=== PATIENT | male | born 1945 | race Caucasian/White ===

== ENCOUNTER 2018-05-17 20:01 | Emergency (ER) | payer MEDICARE, OTHER ==
[2018-05-17 20:18] VITALS: BP 139/72
[2018-05-17] MEDS ORDERED: OXYMETAZOLINE NASAL SPRAY NAS STA (20:36)
--- NOTE | 2018-05-17 21:25 | ED Physician Documentation ---
PD HPI HEENT - Stated complaint Stated Complaint: NOSE BLEED - Chief complaint Chief Complaint: Heent - History obtained from History obtained from: Patient - History of Present Illness Timing - onset: How many hours ago (2), Today Timing - duration: Hours (2) Timing - details: Abrupt onset, Still present Location: Nose (right nosebleed with just gentle nose blowing. Has had some allergy congestion.) Associated symptoms: No: Fever, Congestion Similar symptoms before: Has not had sx before Recently seen: Not recently seen Review of Systems Constitutional: denies: Fever, Chills Nose: denies: Rhinorrhea / runny nose, Congestion Throat: denies: Sore throat Respiratory: denies: Cough GI: denies: Nausea, Vomiting, Diarrhea Neurologic: denies: Generalized weakness, Focal weakness, Numbness, Near syncope PD PAST MEDICAL HISTORY - Past Medical History Cardiovascular: Hypertension, High cholesterol, Coronary artery disease, [place] Respiratory: Asthma, Emphysema - Past Surgical History Past Surgical History: Yes Cardiovascular: Coronary stent, Angioplasty, AAA - Present Medications Home Medications: Ambulatory Orders Medication Instructions Recorded Confirmed Albuterol [Ventolin Hfa] 2 puffs INH DAILY 10/29/15 08/03/16 Aspirin [Low Dose Aspirin EC] 81 mg PO DAILY 10/29/15 08/03/16 Atorvastatin [Lipitor] 40 mg PO DAILY 10/29/15 08/03/16 Clopidogrel Bisulfate [Plavix] 75 mg PO DAILY 10/29/15 08/03/16 Losartan/Hydrochlorothiazide 1 tab PO DAILY 10/29/15 08/03/16 [Losartan-Hctz 50-12.5 mg Tab] Metoprolol Tartrate 25 mg PO BID 10/29/15 08/03/16 [place]-3 Fatty Acids/Fish Oil [Fish 1,000 mg PO DAILY 10/29/15 08/03/16 Oil 1,000 mg Capsule] cephALEXin [Cephalexin] 500 mg PO TID #10 tablet 08/03/16 - Allergies Allergies/Adverse Reactions: Allergies Allergy/AdvReac Type Severity Reaction Status Date / Time Influenza Virus Vaccines AdvReac Unknown Verified 08/03/16 09:24 typhus vaccine AdvReac Unknown Verified 08/03/16 09:24 yellow fever vaccine live AdvReac Unknown Verified 08/03/16 09:24 egg white AdvReac Unknown Uncoded 08/03/16 09:24 - Social History Does the pt smoke?: No Smoking Status: Never smoker Does the pt drink ETOH?: Yes Does the pt have substance abuse?: No - Immunizations Immunizations are current?: Yes PD ED PE NORMAL - Vitals Vital signs reviewed: Yes - General General: Alert and oriented X 3, No acute distress, Well developed/nourished - HEENT HEENT: Ears normal, Pharynx benign, Other (right anterior nare with some bleeding even after pinched here awhile. ) - Neck Neck: Supple, no meningeal sign, No adenopathy - Cardiac Cardiac: RRR, No murmur - Respiratory Respiratory: Clear bilaterally Results - Vitals Vitals: Vital Signs - 24 hr 05/17/18 20:10 Temperature 36.1 C L Heart Rate 56 L Respiratory 18 Rate Blood Pressure 139/72 H O2 Saturation 99 Oxygen O2 Source Room air Procedures - Epistaxis Site: Right, Anterior Preparation: Clots removed, Afrin, Clamp / pressure applied, Other (TXA onto merocel when inserted) Treatment: Silver Nitrate, Packing inserted Other: Observed - no bleeding, Pt tolerated well, O2 sat WNL. No: Antibiotics prescribed PD MEDICAL DECISION MAKING - ED course Complexity details: re-evaluated patient, considered differential, d/w patient - Sepsis Event Vital Signs: Vital Signs - 24 hr 05/17/18 20:10 Temperature 36.1 C L Heart Rate 56 L Respiratory 18 Rate Blood Pressure 139/72 H O2 Saturation 99 Oxygen O2 Source Room air Departure - Departure Disposition: 01 Home, Self Care Clinical Impression: Anterior epistaxis Condition: Stable Record reviewed to determine appropriate education?: Yes Instructions: Nosebleed Follow-Up: Tyrell Gregorio MD [Primary Care Provider] - Comments: Leave the packing in for a day 1-1/2 days. Then moistened and gently pull out. He can follow-up here your primary care if you prefer. If you have recurrent bleeding, sprays some of the Afrin medicine to saturate the gauze and apply the nose pressure. Recheck if bleeding persists despite that. Discharge Date/Time: 05/17/18 21:34
== END 2018-05-17 21:34 | disposition home or self-care (01) ==
LOC: ED 20:01
DX: R04.0 Epistaxis (principal); I10 Essential (primary) hypertension; Z79.02 Long term (current) use of antithrombotics/antiplatelets; Z79.82 Long term (current) use of aspirin
CPT/HCPCS: 30901; 99283; A9270

== ENCOUNTER 2018-07-08 09:03 | Outpatient (CLI) | payer MEDICARE, OTHER ==
--- NOTE | 2018-07-08 22:06 | Ultrasound Report ---
Reason: ABDOMINAL AORTIC ANEURYSM Procedure Date: 07/08/2018 Accession Number: [id number] / [id number] Procedure: US - Retroperitoneal Limited CPT Code: FULL RESULT: EXAM: AORTIC DOPPLER ULTRASOUND EXAM DATE: 07/08/2018 10:30 AM. CLINICAL HISTORY: Abdominal aortic aneurysm. COMPARISON: 07/02/2014 8:26 AM. TECHNIQUE: Real-time sonographic imaging of retroperitoneal vascular structures, including color-flow, Doppler flow and spectral analysis was performed by the middle school assistant principal. Multiple airline security representative static images were saved for review. FINDINGS: Aorta: Normal mid and proximal abdominal aortic caliber. Fusiform aneurysmal dilation of the distal abdominal aorta. Patient is status post endovascular stent repair of the abdominal aorta. No color flow is noted outside of the stent and within the lumen of the aneurysm. Aorta: Proximal: 2.7 cm sagittal. PSV 30.3 cm/sec. Mid: 2.4 x 2.5 cm sagittal.PSV 45.6cm/sec. Distal: 3.7 x 4.3 cm sagittal. PSV 63.8 cm/sec. Proximal RCIA PSV: 57.0 cm/sec. Prox LCIA PSV: 48.5 cm/sec. Iliacs: Right Iliac: 1.4 x 1.5 mm. Left Iliac: 1.3 x 1.5 mm. Iliac Vessels: The visualized proximal common iliac arteries are normal in caliber. Other: None. IMPRESSION: Endovascular stent repair of a fusiform distal abdominal aortic aneurysm measuring 4.3 x 3.7 cm. No flow is noted in the excluded aneurysmal sac. Previously, aneurysm measured 5.1 x 4.7 cm. No retroperitoneal hematoma. RADIA
== END 2018-07-08 09:04 | disposition home or self-care (01) ==
LOC: DI 09:03
PROVIDERS: ATTEND Internal Medicine
DX: I71.4 Abdominal aortic aneurysm, without rupture (principal)
CPT/HCPCS: 76775

== ENCOUNTER 2019-02-07 13:49 | Outpatient (CLI) | payer MEDICARE, OTHER ==
[2019-02-07] MEDS ORDERED: REGADENOSON 0.4 MG/5 ML SYRINGE IVP ONE ×2 (15:06→16:18)
--- NOTE | 2019-02-07 18:38 | CARDIAC PROCEDURE NOTE ---
DATE OF SERVICE: 02/07/2019 Physician: Samra Paredes MD, [facility] INDICATIONS: Coronary artery disease and stent greater than 2 years ago, followup, and has shortness of breath with exertion. CARDIAC RISK FACTORS: Male gender, known CAD, history of PVD, hypertension, hyperlipidemia, family history of early heart disease, remote ex-smoker (quit 15 years ago). PROCEDURE: After signing consent, the patient underwent Lexiscan pharmaceutical stress testing with nuclear myocardial perfusion imaging. RESTING HEART RATE: 49. Peak heart rate: 63. RESTING BLOOD PRESSURE: 145/74. Peak blood pressure: 132/62. Lexiscan was infused per protocol. The patient developed marked flushing and marked shortness of breath. Oxygen saturation was 98% on room air at this time. The patient had no chest pain or other side effects. His flushing and shortness of breath resolved after 2-3 minutes spontaneously. RESTING EKG: Sinus bradycardia, right IVCD, early R/S transition, inverted T wave in lead III, 0.[address] depression in leads II, III, aVF, and V4- V6. EKG AT [facility]: No new ST or T-wave changes. SUMMARY 1. Abnormal resting electrocardiogram. 2. Shortness of breath during pharmaceutical stress test. 3. No new ischemic ST-T changes by EKG criteria. 4. Nuclear images reported separately. TD: 02/07/2019 16:35 MTDD
--- NOTE | 2019-02-08 08:12 | Nuclear Medicine Report ---
Reason: CAD Procedure Date: 02/07/2019 Accession Number: [id number] / [id number] Procedure: NM - Myocardial Perfusion STR/RST CPT Code: FULL RESULT: EXAM: SINGLE-ISOTOPE PHARMACOLOGICAL STRESS TEST WITH REGADENOSON. SINGLE-ISOTOPE AND ONE-DAY REST/STRESS MYOCARDIAL PERFUSION SCANS WITH TOMOGRAPHIC IMAGING, QUANTITATIVE ANALYSIS, WALL MOTION ANALYSIS AND CALCULATION OF EJECTION FRACTION. EXAM DATE: 02/07/2019 05:15 PM. CLINICAL HISTORY: Coronary artery disease. COMPARISON: None available. TECHNIQUE: After the intravenous administration of 10.9 mCi of Tc-99m sestamibi, a rest myocardial perfusion scan was done with tomography. Motion correction was applied when appropriate. After an appropriate delay, pharmacological stress was performed with the infusion of 0.4 mg regadenoson per protocol. According to protocol, 43.6 mCi of Tc-99m sestamibi was injected for stress myocardial perfusion scan. Motion correction was applied when appropriate. Gated tomographic images were obtained for wall motion analysis and computation of left ventricular ejection fraction. FINDINGS: On visual analysis, there is mild inferior wall attenuation artifact. No convincing significant fixed or reversible perfusion defects are evident. Computer analysis Summed stress score 1 Summed rest score 0 Summed difference score 1 Wall motion analysis demonstrates no focal wall motion abnormality. The left ventricular end-diastolic volume is 61 cc. The left ventricular end-systolic volume is 9 cc. The left ventricular ejection fraction is calculated to be 86%. IMPRESSION: 1. No scintigraphic findings to indicate myocardial ischemia. Negative for infarct. 2. Left ventricular ejection fraction of 86%. 3. Normal segmental and global wall motion. 4. Normal left ventricular cavity size, no change with stress. 5. Based on computer analysis normal study with no ischemia. Please correlate findings with stress ECG tracings and procedure notes. RADIA
== END 2019-02-07 13:50 | disposition home or self-care (01) ==
LOC: DI 13:49
PROVIDERS: ATTEND Internal Medicine Cardiovascular Disease
DX: I25.119 Atherosclerotic heart disease of native coronary artery with unspecified angina pectoris (principal); I10 Essential (primary) hypertension; E78.5 Hyperlipidemia, unspecified; Z82.49 Family history of ischemic heart disease and other diseases of the circulatory system; R94.31 Abnormal electrocardiogram [ECG] [EKG]; R06.02 Shortness of breath; I73.9 Peripheral vascular disease, unspecified
CPT/HCPCS: 78452; 93017; A9500; J2785

== ENCOUNTER 2021-10-27 08:00 | Outpatient (CLI) | payer MEDICARE, OTHER | END 2021-10-27 23:59 | LOC: LAB.N 08:00 | PROVIDERS: ATTEND Family Medicine | DX: R05.9 Cough, unspecified (principal); Z20.822 Contact with and (suspected) exposure to COVID-19 ==

== ENCOUNTER 2021-12-02 08:06 | Outpatient (CLI) | payer MEDICARE, OTHER ==
--- NOTE | 2021-12-02 10:34 | Ultrasound Report ---
PROCEDURE: Retroperitoneal Limited INDICATIONS: AAA TECHNIQUE: Real-time scanning was performed of the retroperitoneal organs, with image documentation. COMPARISON: 12/30/2017 FINDINGS: Aorta: Proximal aorta measures 2.4 x 2.4 cm, mid aorta measures 2.2 x 2.3 cm, distal aorta measures 3.7 x 4. 3 cm. An endovascular stent graft is present. There is no flow outside the stent graft material. Right common iliac artery measures 1.7 x 1.5 cm. Left common iliac artery measures 1.6 x 1.5 cm. IMPRESSION: 1. Stable size and appearance of mid to distal abdominal aortic aneurysm post endograft placement. Reviewed by: Vani Alvarado MD on 12/02/2021 10:33 AM PST Approved by: Vani Alvarado MD on 12/02/2021 10:33 AM PST Station ID: [id number]
== END 2021-12-02 08:07 | disposition home or self-care (01) ==
LOC: DI 08:06
PROVIDERS: ATTEND Internal Medicine
DX: I71.4 Abdominal aortic aneurysm, without rupture (principal); Z95.828 Presence of other vascular implants and grafts

== ENCOUNTER 2022-11-04 08:12 | Day surgery (SDC) | payer MEDICARE, OTHER ==
[~2022-11-04 08:12] MED LIST: CYCLOPENTOLATE 1% OPHTH DROPS 2 ML ONE; KETOROLAC 0.45% OPHTH DROPS ONE; PHENYLEPHRINE 2.5% OPHTH 2 ML DROPS ONE; PROPARACAINE 0.5% OPHTH DROPS 15 ML ONE
--- NOTE | 2022-11-04 08:12 | ANESTHESIA ---
Pre-Anesthesia VS, & Labs - Diagnosis R senile combined cataract - Procedure extraction cataract w IOL Height: 5 ft 10 in - NPO >8 hours Home Medications and Allergies Home Medications: Ambulatory Orders Tiotropium [place] [Spiriva Handihaler] 1 puffs IH DAILY 11/04/22 Albuterol [Ventolin Hfa] 2 puffs INH DAILY 10/29/15 Aspirin [Low Dose Aspirin EC] 81 mg PO DAILY 10/29/15 Atorvastatin [Lipitor] 40 mg PO DAILY 10/29/15 Clopidogrel Bisulfate [Plavix] 75 mg PO DAILY 10/29/15 Losartan/Hydrochlorothiazide [Losartan-Hctz 50-12.5 mg Tab] 1 tab PO DAILY 10/29/15 Metoprolol Tartrate 25 mg PO BID 10/29/15 [place]-3 Fatty Acids/Fish Oil [Fish Oil 1,000 mg Capsule] 1,000 mg PO DAILY 10/29/15 Allergies/Adverse Reactions: Allergies Allergy/AdvReac Type Severity Reaction Status Date / Time Influenza Virus Vaccines AdvReac Unknown Verified 11/03/22 12:50 typhus vaccine AdvReac Unknown Verified 11/03/22 12:50 yellow fever vaccine live AdvReac Unknown Verified 11/03/22 12:50 egg white AdvReac Unknown Uncoded 11/03/22 12:50 Anes History & Medical History - Anesthetic History Anesthesia Complications: reports: No previous complications Family history of Anesthesia Complications: Denies Family history of Malignant Hyperthermia: Denies - Medical History Cardiovascular: reports: Hypertension, High cholesterol, Coronary artery disease, [place] Pulmonary: reports: Asthma, Emphysema Smoking Status: Never smoker History of Cancer?: No - Surgical History Cardiothoracic: reports: Coronary stent, Angioplasty, AAA Exam General: Alert, Cooperative Dental: Dentures full Upper, Dentures full Lower Mouth Openin Fingerbreadth Neck Mobility: Normal Mallampati classification: II Respiratory: Lungs clear, Normal breath sounds, No respiratory distress Cardiovascular: Regular rate (adina at 45) Neurological: Normal speech Mental/Cognitive Status: Alert/Oriented X3, Normal for patient Cognitive Status: Within normal limits Plan Anesthesia Type: MAC Consent for Procedure(s) Verified and Reviewed: Yes Code Status: Attempt Resuscitation ASA classification: 3-Severe systemic disease Is this case an emergency?: No
[2022-11-04] MEDS ORDERED: LACTATED RINGERS 1,000 ML IV ONE (08:37)
[2022-11-04] MEDS ORDERED: MIDAZOLAM 2 MG/2 ML VIAL ONE (09:40)
[2022-11-04] MEDS ORDERED: TRIAMCIN/MOXIFLOX OPHTHALMIC 0.6 ML VIAL IO ONE ×3 (10:11→10:39)
[2022-11-04] MEDS ORDERED: BRIMONIDINE 0.2% OPHTH DROPS 5 ML OPTH ONE (10:11)
[2022-11-04] MEDS ORDERED: EPINEPHrine 1 MG/ML AMP IR ONE (10:11)
[2022-11-04] MEDS ORDERED: BSS/LIDOCAINE/EPINEPHRINE 1 ML SYRINGE IO ONE (10:11)
[2022-11-04] MEDS ORDERED: TIMOLOL 0.5% OPHTH DROPS OPTH ONE (10:11)
[2022-11-04] MEDS ORDERED: VANCOMYCIN OPHTH (TOPICAL) 10 MG/ML SYRINGE TOP ONE (10:12)
[2022-11-04] MEDS ORDERED: PROPARACAINE 0.5% OPHTH DROPS 15 ML EACHEYE ONE (10:12)
[2022-11-04] MEDS ORDERED: LACTATED RINGERS 750 ML IV ONE (10:23)
--- NOTE | 2022-11-04 10:23 | OPERATIVE REPORT ---
Operative Report - Procedure Note Complications: Date of Surgery: 11/04/22 Preop Dx: Visually significant cataract right eye. This was the first cataract surgery. Postop Dx: Same Procedure: Phacoemulsification with posterior chamber intraocular lens implant right eye Surgeon: Dr. Jose Valdez Anesthesia: Monitored anesthesia care Complications: None Operative Indications: This is a 77-year-old M with progressive vision loss in the right eye due to 3-4+ nuclear sclerotic, 1+ cortical, and vacuolar cataract. Best corrected visual acuity was 20/40 with glare to 20/125 vision in the right eye. Indications for surgery were: - Overall decrease in vision - Difficulty seeing words on a computer screen - Difficulty reading - Difficulty seeing words, closed captions, or game scores on TV - Difficulty driving at night because of headlights from other vehicles - Difficulty with glare or bright lights in any situation - Decreased acuity with firearms The patient was consented at length concerning the risks and benefits of cataract surgery after which the patient expressed a desire to proceed with surgery. Operative Procedure: The patient was taken into OR#3 and placed under monitored anesthesia care. A surgical time-out was conducted confirming correct patient, correct procedure, and correct surgical site. The patient was given topical anesthesia and then prepped and draped in the usual sterile fashion. The eye was entered at the 6 and 3 oclock positions. Intracameral Shugarcaine was injected into the anterior chamber followed by a dispersive viscoelastic. A continuous-tear curvilinear capsulorhexis was performed. The nucleus was hydrodissected and phacoemulsified. The cortex was evacuated using automated infusion and aspiration. A cohesive viscoelastic was injected into the capsular bag and a 20.5 diopter intraocular lens was inserted into the bag. Infusion and aspiration were used to evacuate the viscoelastic materials from the eye. The wounds were hydrated and the eye inflated to physiologic pressure using balanced salt solution. Approximately 0.25ml of a mixture of triamcinolone and moxifloxacin was injected trans-sclerally into the vitreous in the inferotemporal quadrant using a 30 gauge cannula. An additional 0.55ml of a mixture of triamcinolone and moxifloxacin was injected subconjunctivally in the superior quadrant for infection and inflammation prophylaxis. Wound integrity was checked with Weck-Kasia sponges. The patient was taken from the operating room in good condition and given post-op instructions.
--- NOTE | 2022-11-04 10:24 | ANESTHESIA POST OP EVALUATION ---
Anesthesia Post Eval - Post Anesthesia Eval CV Function Including HR & BP: Stable Pain Control: Satisfactory Nausea & Vomiting: Negative Mental Status: Baseline Respiratory Status: Airway Patent Hydration Status: Satisfactory Anesthesia Complications: None
[2022-11-04] MEDS ORDERED: EPINEPHrine 1 MG/ML AMP ONE (10:31)
[2022-11-04] MEDS ORDERED: timoloL maleate 0.5% OPHTH DROPS (10ML) ONE (10:31)
[2022-11-04] MEDS ORDERED: VANCOMYCIN OPHTH (TOPICAL) 10 MG/ML SYRINGE ONE (10:31)
[2022-11-04] MEDS ORDERED: BRIMONIDINE 0.2% OPHTH DROPS 5 ML ONE (10:31)
[2022-11-04 10:32] VITALS: BP 130/49
== END 2022-11-04 08:13 | disposition home or self-care (01) ==
LOC: SDS 08:12
PROVIDERS: ATTEND Ophthalmology
DX: H25.811 Combined forms of age-related cataract, right eye (principal); J43.9 Emphysema, unspecified; I25.10 Atherosclerotic heart disease of native coronary artery without angina pectoris; I25.2 Old myocardial infarction; I10 Essential (primary) hypertension; Z87.891 Personal history of nicotine dependence
CPT/HCPCS: 66984; A9270; J3490; J7120

== ENCOUNTER 2022-12-23 06:56 | Day surgery (SDC) | payer MEDICARE, OTHER ==
--- NOTE | 2022-12-23 06:49 | ANESTHESIA ---
Pre-Anesthesia VS, & Labs - Diagnosis L senile combined cataract - Procedure L extraction cataract w/IOL Height: 5 ft 10 in Home Medications and Allergies Albuterol [Ventolin Hfa] 2 puffs INH DAILY 10/29/15 Atorvastatin [Lipitor] 40 mg PO DAILY 10/29/15 Clopidogrel Bisulfate [Plavix] 75 mg PO DAILY 10/29/15 Losartan/Hydrochlorothiazide [Losartan-Hctz 50-12.5 mg Tab] 1 tab PO DAILY 10/29/15 Metoprolol Tartrate 25 mg PO BID 10/29/15 [place]-3 Fatty Acids/Fish Oil [Fish Oil 1,000 mg Capsule] 1,000 mg PO DAILY 10/29/15 Tiotropium [place] [Spiriva Handihaler] 1 puffs IH DAILY 11/04/22 Allergies/Adverse Reactions: Allergies Allergy/AdvReac Type Severity Reaction Status Date / Time Influenza Virus Vaccines AdvReac Unknown Verified 11/03/22 12:50 typhus vaccine AdvReac Unknown Verified 11/03/22 12:50 yellow fever vaccine live AdvReac Unknown Verified 11/03/22 12:50 egg white AdvReac Unknown Uncoded 11/03/22 12:50 Anes History & Medical History - Anesthetic History Anesthesia Complications: reports: No previous complications Family history of Anesthesia Complications: Denies Family history of Malignant Hyperthermia: Denies - Medical History Cardiovascular: reports: Hypertension, High cholesterol, Coronary artery disease, [place] Pulmonary: reports: Asthma, Emphysema Gastrointestinal: reports: None Urinary: reports: None Musculoskeletal: reports: None Endocrine/Autoimmune: reports: None Smoking Status: Never smoker - Surgical History Eyes Ears Nose Throat (EENT): reports: Cataracts Cardiothoracic: reports: Coronary stent, Angioplasty, AAA Exam General: Alert, Oriented x3, Cooperative Dental: Dentures full Upper, Dentures full Lower Mouth Openin Fingerbreadth Neck Mobility: Normal Mallampati classification: II Thyromental Distance: 4-6 cm Respiratory: Lungs clear, Normal breath sounds, No respiratory distress Cardiovascular: Regular rate Neurological: Normal speech Mental/Cognitive Status: Alert/Oriented X3, Normal for patient Cognitive Status: Within normal limits Plan Anesthesia Type: MAC Consent for Procedure(s) Verified and Reviewed: Yes Code Status: Attempt Resuscitation ASA classification: 2-Mild systemic disease Is this case an emergency?: No
[2022-12-23] MEDS ORDERED: LACTATED RINGERS 1,000 ML IV ONE (07:01)
[2022-12-23] MEDS ORDERED: MIDAZOLAM 2 MG/2 ML VIAL ONE (08:13)
[2022-12-23] MEDS ORDERED: BRIMONIDINE 0.2% OPHTH DROPS 5 ML ONE (08:24)
[2022-12-23] MEDS ORDERED: TRIAMCIN/MOXIFLOX OPHTHALMIC 0.6 ML VIAL IO ONE ×2 (08:24→08:42)
[2022-12-23] MEDS ORDERED: EPINEPHrine 1 MG/ML AMP ONE (08:24)
[2022-12-23] MEDS ORDERED: TIMOLOL 0.5% OPHTH DROPS ONE (08:25)
[2022-12-23] MEDS ORDERED: BSS/LIDOCAINE/EPINEPHRINE 1 ML VIAL ONE (08:25)
[2022-12-23] MEDS ORDERED: VANCOMYCIN OPHTH (TOPICAL) 10 MG/ML SYRINGE ONE (08:25)
[2022-12-23] MEDS ORDERED: TIMOLOL 0.5% OPHTH DROPS OPTH ONE (08:39)
[2022-12-23] MEDS ORDERED: EPINEPHrine 1 MG/ML AMP IR ONE (08:39)
[2022-12-23] MEDS ORDERED: BRIMONIDINE 0.2% OPHTH DROPS 5 ML OPTH ONE (08:39)
[2022-12-23] MEDS ORDERED: BSS/LIDOCAINE/EPINEPHRINE 1 ML SYRINGE IO ONE (08:41)
[2022-12-23] MEDS ORDERED: PROPARACAINE 0.5% OPHTH DROPS 15 ML EACHEYE ONE (08:42)
[2022-12-23] MEDS ORDERED: VANCOMYCIN OPHTH (TOPICAL) 10 MG/ML SYRINGE TOP ONE (08:43)
[2022-12-23] MEDS ORDERED: fentaNYL 100 MCG/2 ML VIAL ONE (08:45)
[2022-12-23] MEDS ORDERED: LACTATED RINGERS 800 ML IV ONE (08:56)
--- NOTE | 2022-12-23 09:01 | OPERATIVE REPORT ---
Operative Report - Other Other Information/Narrative: Date of Surgery: 12/23/22 Preop Dx: Visually significant cataract left eye. Cataract surgery was performed in the right eye on . Postop Dx: Same Procedure: Phacoemulsification with posterior chamber intraocular lens implant left eye Surgeon: Dr. Jose Valdez Anesthesia: Monitored anesthesia care Complications: None Operative Indications: This is a 77-year-old M with progressive vision loss in the left eye due to 3+ nuclear sclerotic and 2+ posterior subcapsular cataract. Best corrected visual acuity was 20/25 with glare to 20/70 vision in the left eye. Indications for surgery were: - Difficulty reading - Difficulty seeing words, closed captions, or game scores on TV - Difficulty driving at night because of headlights from other vehicles The patient was consented at length concerning the risks and benefits of cataract surgery after which the patient expressed a desire to proceed with surgery. Operative Procedure: The patient was taken into OR#3 and placed under monitored anesthesia care. A surgical time-out was conducted confirming correct patient, correct procedure, and correct surgical site. The patient was given topical anesthesia and then prepped and draped in the usual sterile fashion. The eye was entered at the 6 and 3 oclock positions. Intracameral Shugarcaine was injected into the anterior chamber followed by a dispersive viscoelastic. A continuous-tear curvilinear capsulorhexis was performed. The nucleus was hydrodissected and phacoemulsified. The cortex was evacuated using automated infusion and aspiration. A cohesive viscoelastic was injected into the capsular bag and a 22.0 diopter intraocular lens was inserted into the bag. Infusion and aspiration were used to evacuate the viscoelastic materials from the eye. The wounds were hydrated and the eye inflated to physiologic pressure using balanced salt solution. Approximately 0.25ml of a mixture of triamcinolone and moxifloxacin was injected trans-sclerally into the vitreous in the inferotemporal quadrant using a 30 gauge cannula. An additional 0.25ml of a mixture of triamcinolone and moxifloxacin was injected subconjunctivally in the superior quadrant for infection and inflammation prophylaxis. Wound integrity was checked with Weck-Kasia sponges. The patient was taken from the operating room in good condition and given post-op instructions.
[2022-12-23 09:09] VITALS: BP 119/52
--- NOTE | 2022-12-23 09:10 | ANESTHESIA POST OP EVALUATION ---
Anesthesia Post Eval - Post Anesthesia Eval Vitals: Last Vital Signs Temp 36.2 C L 12/23/22 09:08 Pulse 54 L 12/23/22 09:08 Resp 14 12/23/22 09:08 BP 119/52 L 12/23/22 09:08 Pulse Ox 98 12/23/22 09:08 O2 Flow Rate CV Function Including HR & BP: Stable Pain Control: Satisfactory Nausea & Vomiting: Negative Mental Status: Baseline Respiratory Status: Airway Patent Hydration Status: Satisfactory Anesthesia Complications: None
== END 2022-12-23 06:57 | disposition home or self-care (01) ==
LOC: SDS 06:56
PROVIDERS: ATTEND Ophthalmology
DX: H25.812 Combined forms of age-related cataract, left eye (principal); J43.9 Emphysema, unspecified; I25.10 Atherosclerotic heart disease of native coronary artery without angina pectoris; I25.2 Old myocardial infarction; Z87.891 Personal history of nicotine dependence; Z98.41 Cataract extraction status, right eye
CPT/HCPCS: 66984; A9270; J3490; J7120

== ENCOUNTER 2023-06-28 10:42 | Outpatient (CLI) | payer MEDICARE, OTHER ==
--- NOTE | 2023-06-29 08:57 | Ultrasound Report ---
PROCEDURE: Retroperitoneal Limited INDICATIONS: AAA TECHNIQUE: Real-time scanning was performed of the retroperitoneal organs, with image documentation. COMPARISON: Ultrasound retroperitoneum, 12/03/2021. FINDINGS: Aorta (proximal): 2.5 x 2.5 cm (previously 2.4 x 2.4 cm). Aorta (mid): 2.4 x 2.2 cm (previously 2.2 x 2.3 cm). Aorta (distal): 3.7 x 4.3 cm (previously 3.7 x 4.6 cm). Right common iliac artery: 1.4 x 1.8 cm (previously 1.7 x 1.5 cm). Left common iliac artery: 1.5 x 1.6 cm (previously 1.6 x 1.5 cm). IMPRESSION: 1. Distal abdominal aortic aneurysm, stable in size. 2. Bilateral common iliac artery ectasia, stable. Reviewed by: Courtney Whiteside MD on 06/29/2023 8:56 AM PDT Approved by: Courtney Whiteside MD on 06/29/2023 8:56 AM PDT Station ID: [id number]
== END 2023-06-28 10:43 | disposition home or self-care (01) ==
LOC: DI 10:42
PROVIDERS: ATTEND Internal Medicine
DX: I71.40 Abdominal aortic aneurysm, without rupture, unspecified (principal); I72.3 Aneurysm of iliac artery

== ENCOUNTER 2024-06-18 08:45 | Outpatient (CLI) | payer MEDICARE, OTHER ==
--- NOTE | 2024-06-18 13:44 | Ultrasound Report ---
PROCEDURE: Renal Ltd (Retroperitoneal Ltd INDICATIONS: EMBOLISM AND THROMBOSIS OF UNSPECIFIED PARTS OF AO TECHNIQUE: Real-time scanning was performed of the retroperitoneal organs, with image documentation. COMPARISON: Aortic ultrasound 06/28/2023, 07/08/2018. FINDINGS: Aorta: Proximal: 2.6 x 2.6 cm. Mid: 2.4 x 2.3 cm. Distal 4.4 x 3.7 cm. (Previously measured at 4.3 x 3.7 cm in 2018) Right DIXIE: 1.4 x 1.3 cm. Left DIXIE: 1.3 x 1.3 cm. IMPRESSION: Infrarenal abdominal aortic aneurysm measuring 4.4 cm. Not significantly changed compared to 2018. Recommend continued imaging surveillance. CT angiogram may be helpful for further evaluation. Reviewed by: Jose Ford MD on 06/18/2024 1:42 PM PDT Approved by: Jose Ford MD on 06/18/2024 1:42 PM PDT Station ID: [id number]
== END 2024-06-18 08:46 | disposition home or self-care (01) ==
LOC: DI 08:45
PROVIDERS: ATTEND Internal Medicine
DX: I71.43 Infrarenal abdominal aortic aneurysm, without rupture (principal)